=== PATIENT | male | born 1955 | race Caucasian/White ===

== ENCOUNTER 2018-08-20 05:58 | Day surgery (SDC) | payer MEDICARE, OTHER ==
[~2018-08-20] VITALS: Ht 167.6 cm; Wt 56.2 kg
[~2018-08-20 05:58] MED LIST: BENA5TAB33 PO; CANA300T PO; CHOL200056 PO; DOXA1TAB PO; FENO150C2 PO; GEMF600T8 PO; GLYB1TAB3 PO; ICOS1CAP PO; METO10TA92 PO; OMEP40CA6 PO; SIMV5TAB14 PO; SITA100T11 PO; TAMS0.4C2 PO; TRAV4OP25 BOTH EYES
[2018-08-20] MEDS ORDERED: DICL75TA2 PO (07:16)
[2018-08-20 07:17] VITALS: Ht 167.6 cm; Wt 56.2 kg
[2018-08-20] MEDS ORDERED: PROPOFOL 20 ML ONE (07:26)
--- NOTE | 2018-08-20 07:35 | PREAC ---
Date/Time of Note Date/Time of Note DATE: 08/20/18 TIME: 07:35 Anesthesia Eval and Record Evaluation Time Pre-Procedure Interview DATE: 08/20/18 TIME: 07:35 Age 62 Sex male NPO: 8 hrs Preoperative diagnosis Abdominal pain, change in bowel habit Planned procedure EGD, Colonoscopy Past Medical History Past Medical History: Includes Cardio: HTN, Dyslipidemia Endo: Diabetes Musculoskeletal: Osteoarthritis GI: GERD Surgery & Anesthesia Issues No known issue Meds Anticoagulation: No Beta Artem within 24 hr: No Reason Beta Artem not given: Pt. not on B-Artem Reported Medications Diclofenac Sodium* (Diclofenac Sodium*) 75 Mg Tablet.dr, 75 MG PO DAILY, #60 TAB 08/20/18 Cholecalciferol (Vitamin D3) (Vitamin D-3) 2,000 Unit Tablet, 2000 UNIT PO DAILY, TAB 03/09/18 Gemfibrozil* (Gemfibrozil*) 600 Mg Tablet, 600 MG PO BID, TAB 03/09/18 Simvastatin* (Simvastatin*) 5 Mg Tablet, 5 MG PO QHS, #30 TAB 03/09/18 Benazepril Hcl* (Benazepril Hcl*) 5 Mg Tablet, 5 MG PO DAILY, #30 TAB 03/09/18 Sitagliptin* (Januvia*) 100 Mg Tablet, 100 MG PO DAILY, #30 TAB 03/09/18 Tamsulosin Hcl* (Tamsulosin Hcl*) 0.4 Mg Cap.er.24h, 0.4 MG PO HS, CAP 03/09/18 Glyburide/Metformin HCl (Glucovance 5-500 mg Tablet) 1 Each Tablet, 1 EACH PO BID, TAB 03/09/18 Canagliflozin (Invokana) 300 Mg Tablet, 300 MG PO DAILY, TAB 03/09/18 Fenofibrate* (Lipofen*) 150 Mg Capsule, 150 MG PO DAILY, TAB 03/09/18 Discontinued Reported Medications Doxazosin Mesylate* (Doxazosin Mesylate*) 1 Mg Tablet, 1 MG PO HS, TAB 03/09/18 Icosapent Ethyl (VASCEPA) 1 Gm Capsule, 1 GM PO BID, CAP 03/09/18 Travoprost* (Travatan*) 0.004%-2.5 Ml Opht, 1 DROP BOTH EYES QHS, #1 BOTTLE 03/09/18 Discontinued Scripts Metoclopramide* (Reglan*) 10 Mg Tablet, 10 MG PO Q6 PRN for NAUSEA AND/OR VOMITING, #10 TAB Prov:FLACO PATRICK MD 03/09/18 Omeprazole* (Omeprazole*) 40 Mg Capsule.dr, 40 MG PO DAILY, #30 CAP Prov:FLACO PATRICK MD 03/09/18 Meds reviewed: Yes Allergies Coded Allergies: cortisone (Unverified Allergy, Unknown, 03/09/18) Allergies Reviewed: Yes Labs/Studies Labs Reviewed: Reviewed by anesthesiologist test: N/A Pre-procedure Exam Airway: Adequate mouth opening Mallampati: Mallampati I Teeth: Normal Lung: Normal Heart: Normal ASA Physical Status ASA physical status: 2 Emergency: None Planned Anesthetic General/MAC: MAC Planned Pain Management Parenteral pain med Pre-operative Attestations Prior to commencing anesthesia and surgery, the patient was re-evaluated, there was verification of: *The patient's identity *The results of appropriate recent lab work and preoperative vital signs *The above evaluation not changing prior to induction *Anesthetic plan, risk benefits, alternative and complications discussed with patient/family; questions answered; patient/family understands, accepts and wishes to proceed. MADDY MARC MD Aug 20, 2018 07:35
[2018-08-20 07:48] VITALS: BP 112/71; PULSE 71; RESP 18
[2018-08-20] MEDS ORDERED: LABETALOL HCL 20MG INJ IV PRN (09:00)
[2018-08-20] MEDS ORDERED: hydrALAzine 20 MG INJ IV PRN (09:00)
[2018-08-20] MEDS ORDERED: ONDANSETRON 4 MG INJ IV PRN (09:00)
[2018-08-20] MEDS ORDERED: MEPERIDINE 25 MG INJ IV PRN (09:00)
[2018-08-20] MEDS ORDERED: MIDAZOLAM 1 MG/ML 2 ML INJ IV PRN (09:00)
[2018-08-20] MEDS ORDERED: METOCLOPRAMIDE 10 MG INJ IV PRN (09:00)
[2018-08-20] MEDS ORDERED: OXYCODONE/ACETAMINOPHEN (5/325) TAB PO PRN ×2 (09:00)
[2018-08-20] MEDS ORDERED: DIPHENHYDRAMINE 50 MG INJ IV PRN (09:00)
[2018-08-20] MEDS ORDERED: FENTAnyl 50 MCG/ML VIAL IV PRN ×3 (09:00)
[2018-08-20] MEDS ORDERED: EPHEDrine SULFATE 50 MG/5 ML SYG IV PRN (09:00)
--- NOTE | 2018-08-20 09:01 | PAC ---
Date/Time of Note Date/Time of Note DATE: 08/20/18 TIME: 09:01 Post-Anesthesia Notes Post-Anesthesia Note Last documented vital signs Vital Signs Date Temp Pulse Resp B/P (MAP) Pulse Ox O2 O2 Flow FiO2 Time Delivery Rate 08/20/18 97.4 71 18 112/71 98 Room Air 07:48 (85) Activity: WNL Respiratory function: WNL Cardiovascular function: WNL Mental status: Baseline Pain reasonably controlled: Yes Hydration appropriate: Yes Nausea/Vomiting absent: Yes Comments TEMP:98,SAT: 96, PULSE: 72, RESP: 18 MADDY MARC MD Aug 20, 2018 09:01
[2018-08-20 09:09] VITALS: BP 109/83; PULSE 79; RESP 18
== END 2018-08-20 12:19 | disposition home or self-care (01) ==
LOC: GIL 05:58
PROVIDERS: ATTEND Internal Medicine Gastroenterology
DX: R19.4 Change in bowel habit (principal); K64.8 Other hemorrhoids; K44.9 Diaphragmatic hernia without obstruction or gangrene; K21.9 Gastro-esophageal reflux disease without esophagitis; I10 Essential (primary) hypertension; E78.5 Hyperlipidemia, unspecified; E11.9 Type 2 diabetes mellitus without complications
CPT/HCPCS: 82962; 88305; 88312

== ENCOUNTER 2019-04-27 11:03 | Emergency (ER) | payer MEDICARE, OTHER ==
[~2019-04-27] VITALS: Ht 172.7 cm; Wt 86.6 kg
[~2019-04-27 11:03] MED LIST changes: +CYCL10TA7 PO; +DICL75TA2 PO; -DOXA1TAB PO; -ICOS1CAP PO; -METO10TA92 PO; +NAPR-985 PO; -OMEP40CA6 PO; -TRAV4OP25 BOTH EYES
[2019-04-27 11:31] VITALS: Ht 172.7 cm; Wt 86.6 kg
[2019-04-27] MEDS ORDERED: KETOROLAC 30 MG INJ IM STA ×2 (15:22→15:30)
[2019-04-27 16:00] VITALS: BP 132/73; PULSE 67; RESP 18
== END 2019-04-27 16:07 | disposition home or self-care (01) ==
LOC: FTE 11:03
DX: M54.5 Low back pain (principal); I10 Essential (primary) hypertension; Z79.84 Long term (current) use of oral hypoglycemic drugs
CPT/HCPCS: 36415; 80048; 81003; 85025; 96372; 99284; J1885